=== PATIENT | female | born 1945 | race Caucasian/White ===

== ENCOUNTER → 2024-05-29 14:46 | Outpatient (REF) | payer MEDICARE, OTHER, SELFPAY | LOC: HWRCS 14:46 | PROVIDERS: ATTENDING PHYSICIAN Internal Medicine Cardiovascular Disease; FAMILY PHYSICIAN Internal Medicine | DX: Z95.2 Presence of prosthetic heart valve (principal); R60.0 Localized edema | CPT/HCPCS: 93306 ==

== ENCOUNTER → 2024-07-27 13:42 | Outpatient (REF) | payer MEDICARE, OTHER, SELFPAY | LOC: RAD 13:42 | PROVIDERS: ATTENDING PHYSICIAN Internal Medicine Cardiovascular Disease; FAMILY PHYSICIAN Internal Medicine | DX: R60.0 Localized edema (principal); I10 Essential (primary) hypertension | CPT/HCPCS: 93970 ==

== ENCOUNTER → 2025-05-24 13:52 | Outpatient (REF) | payer MEDICARE, OTHER, SELFPAY | LOC: RCS 13:52 | PROVIDERS: ATTENDING PHYSICIAN Internal Medicine Cardiovascular Disease; FAMILY PHYSICIAN Internal Medicine | DX: I10 Essential (primary) hypertension (principal); Z95.2 Presence of prosthetic heart valve | CPT/HCPCS: 93306 ==